=== PATIENT | female | born 1990 | race African-American/Black ===

== ENCOUNTER 2021-02-23 05:06 | Emergency (ER) | payer OTHER ==
[~2021-02-23] VITALS: Ht 167.6 cm; Wt 74.0 kg
[2021-02-23] MEDS ORDERED: PREDNISONE 20MG TABLET PO STA (05:29)
[2021-02-23] MEDS ORDERED: IPRATROPIUM BROMIDE (0.02%) 0.5MG/2.5ML NEB HHN STA (05:29)
[2021-02-23] MEDS ORDERED: ALBUTEROL (0.083%) 2.5MG/3ML NEB HHN STA (05:29)
[2021-02-23] MEDS ORDERED: FAMOTIDINE 20MG/2ML VIAL IV ONE (06:15)
[2021-02-23] MEDS ORDERED: DIPHENHYDRAMINE 50MG/ML VIAL IV ONE (06:15)
[2021-02-23] MEDS ORDERED: METHYLPREDNISOLONE SOD SUCC 125 MG/2 ML VIAL IV ONE (06:15)
[2021-02-23] MEDS ORDERED: EPIN0.3P3 IM (08:29)
[2021-02-23] MEDS ORDERED: P50 PO (08:29)
[2021-02-23] MEDS ORDERED: DIPH25CA83 PO (08:29)
[2021-02-23 09:25] VITALS: BP 136/75
== END 2021-02-23 10:18 | disposition home or self-care (01) ==
LOC: ER 05:06
DX: T78.40XA Allergy, unspecified, initial encounter (principal); X58.XXXA Exposure to other specified factors, initial encounter; J45.909 Unspecified asthma, uncomplicated
CPT/HCPCS: 71045; 93005; 94640; 96374; 96375; 99285; J1200; J3490; J7512; Z7610